=== PATIENT | male | born 1990 | race African-American/Black ===

== ENCOUNTER 2017-08-07 11:02 | Emergency (ER) | payer OTHER ==
[~2017-08-07 11:02] MED LIST: Z.0.NO CURRENT MEDS
[2017-08-07 11:06] VITALS: BP 147/80; PULSE 62; RESP 13; TEMP 98.4; O2SAT 97
--- NOTE | 2017-08-07 11:09 | PD ---
HPI Chief Complaint: no complaints Time Seen by Provider: 11:08 Travel History International Travel<30 days: No Contact w/Intl Traveler<30days: No Traveled to known affect area: No History of Present Illness HPI Pt is here requesting blood work and std testing. Has no symptoms. "Just wants to be safe." Patient denies any acute medical needs. He does not have a primary care provider and feels that he should have some blood work done. He has no other symptoms to report. History Past Medical Histgory Medical History: Denies Significant Hx Social History Alcohol Use: No Tobacco Use: No Allergies-Medications (Allergen,Severity, Reaction): Coded Allergies: No Known Allergies (Verified Allergy, Mild, 10/07/06) Reported Meds & Prescriptions Reported Meds & Active Scripts Active Reported No Current Meds (Miscellaneous Medication) Misc Review of Systems Except as stated in HPI: all other systems reviewed are Neg Physical Exam Narrative GENERAL: Well nourished male patient in no acute distress SKIN: Warm and dry. HEAD: Normocephalic. EYES: No scleral icterus. No injection or drainage. NECK: Supple, trachea midline. No JVD or lymphadenopathy. CARDIOVASCULAR: Regular rate RESPIRATORY: No accessory muscle use. GASTROINTESTINAL: Abdomen soft, non-tender, nondistended. MUSCULOSKELETAL: No cyanosis, or edema. BACK: without obvious deformity. Data Data Last Documented VS Vital Signs Date Time Temp Pulse Resp B/P (MAP) Pulse Ox O2 Delivery O2 Flow Rate FiO2 08/07/17 11:06 98.4 62 13 147/80 (102) 97 MDM Medical Screen Exam Complete: Yes Emergency Medical Condition: No Differential Diagnosis normal exam Narrative Course 27 year male presents to the emergency department requesting lab work and STD testing as a general exam. Patient appears well and without distress. He has absolutely no medical symptoms to report at this time. At this time there are no urgent or emergent needs medical intervention identified. A medical screening exam was performed: At the time of evaluation the presenting medical condition was determined not to be of an emergent nature. The patient was given the option of receiving additional care, but declined. Patient was given options for additional community resources from which to obtain care. The Patient Has Been advised to seek medical attention for their presenting complaint. The patient has been advised to return to the ER at any time if an emergent condition develops. Primary Impression: Encounter for medical screening examination Condition: Stable Light,Khadra [employer] Aug 07, 2017 11:09
== END 2017-08-07 11:15 | disposition left against medical advice (07) ==
LOC: NED 11:02
DX: Z11.3 Encounter for screening for infections with a predominantly sexual mode of transmission (principal)
CPT/HCPCS: 99281